=== PATIENT | female | born 1975 | race Caucasian/White ===

== ENCOUNTER 2024-08-28 09:15 | Emergency (ER) | payer BC, MEDICAID ==
[~2024-08-28] VITALS: Ht 160 cm; Wt 82.0 kg
[2024-08-28 09:21] VITALS: O2SAT 99
[2024-08-28 10:47] LABS: BASOPHILS % 0.4 % (0.0-2.0); EOSINOPHILS % 1.3 % (0.0-5.0); HEMATOCRIT. 31.8 % (36.0-48.0); HEMOGLOBIN. 10.3 g/dL (12.0-16.0); LYMPHOCYTES % 18.6 % (20.0-50.0); MEAN CORPUSCULAR HEMOGLOBIN 27.2 pg (28.0-32.0); MEAN CORPUSCULAR HGB CONC 32.2 g/dL (31.0-37.0); MEAN CORPUSCULAR VOLUME 84.4 fL (81.0-99.0); MEAN PLATELET VOLUME 9.7 fl (7.4-10.4); MONOCYTES % 4.6 % (2.0-8.0); NEUTROPHILS % 75.1 % (40.0-76.0); PLATELET 232 x1000/uL (130-400); RED BLOOD CELL COUNT 3.77 mill/uL (4.2-5.4); RED CELL DISTRIBUTION WIDTH 18.2 % (11.6-14.6); WHITE BLOOD COUNT 10.8 x1000/uL (4.5-11.0)
[2024-08-28 10:51] LABS: CHLORIDE 107 mEq/L (98-107); SODIUM 138 mEq/L (136-145)
[2024-08-28 10:52] LABS: CALCIUM 8.9 mg/dL (8.7-10.4); CARBON DIOXIDE 23 mEq/L (21-32)
[2024-08-28 10:57] LABS: CREATININE 0.8 mg/dL (0.6-1.0); GLUCOSE 144 mg/dL (70-105); UREA NITROGEN BLOOD 11 mg/dL (9-23)
[2024-08-28 11:13] LABS: B-HCG QUANTITATIVE < 1 mIU/mL (<3)
[2024-08-28] MEDS ORDERED: IBUP-2029 MT (11:17)
[2024-08-28] MEDS: ONDANSETRON 4MG ODT PO ONE (11:21)
[2024-08-28] MEDS: KETOROLAC 30MG/ML VIAL IM ONE (11:27)
[2024-08-28 11:30] VITALS: BP 136/76; PULSE 123; RESP 16; TEMP 36.83628; O2SAT 99
== END 2024-08-28 11:30 | disposition home or self-care (01) ==
LOC: ER 09:15
DX: D25.1 Intramural leiomyoma of uterus (principal); D64.9 Anemia, unspecified; Z98.890 Other specified postprocedural states
CPT/HCPCS: 99285; 76830; 76856; 80048; 84702; 85025; 86850; 86900; 86901; 36415; 96372; Q0162; J1885